=== PATIENT | female | born 2000 | race Caucasian/White ===

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

== ENCOUNTER 2019-09-12 16:15 | Observation (INO) ==
[2019-09-12 16:58] LABS: Basophils % 0.2 %; Eosinophils # 0.2 K/mcL (0.0-0.6); Eosinophils % 1.6 %; Hematocrit 39.3 % (35.3-44.9); Hemoglobin 12.5 g/dL (11.5-15.4); Immature Granulocytes % 0.5 % (0-4); Lymphocytes # 1.5 K/mcL (0.6-4.6); Lymphocytes % 14.7 %; Mean Corpuscular HGB Conc 31.8 g/dL (31.6-35.5); Mean Corpuscular Hemoglobin 27.7 pg (28.0-33.3); Mean Corpuscular Volume 87.1 fL (83.0-100.0); Monocytes # 0.8 K/mcL (0.0-1.3); Monocytes % 7.6 %; Neutrophils # 7.4 K/mcL (1.6-8.9); Platelet Count 250 K/mcL (140-400); Red Blood Count 4.51 M/mcL (3.82-4.97); Red Cell Distribution Width 13.4 % (11.5-14.5); Segmented Neutrophils % 75.4 %; White Blood Count 9.8 K/mcL (4.3-11.1)
[2019-09-12 17:00] LABS: Protein/Creatinine Ratio,Urine 0.17 mg/mg (0.00-0.20)
[2019-09-12 17:19] LABS: Alanine Aminotransferase 9 Units/L (7-52); Aspartate Amino Transferase 14 Units/L (13-39); BUN/Creatinine Ratio 14 (6-26); Blood Urea Nitrogen 6 mg/dL (6-20); Lactate Dehydrogenase 146 Units/L (140-271); Uric Acid 3.6 mg/dL (2.3-7.6); eGFR For African Americans > 60 (> 60); eGFR For Non-African Americans > 60 (> 60)
[2019-09-13] MEDS ORDERED: Prenatal Vit/FA 1 EACH TABLET PO SCH (09:00)
== END 2019-09-12 17:35 | disposition home or self-care (01) ==
LOC: 1NENULAB
PROVIDERS: ADMIT Obstetrics & Gynecology; ATTEND Obstetrics & Gynecology

== ENCOUNTER 2019-09-27 10:59 | Observation (INO) ==
[2019-09-27 11:45] LABS: Bilirubin,Urine Negative (Negative); Blood,Urine Negative (Negative); Clarity,Urine Cloudy (Clear); Color,Urine Dark Yellow (Yellow); Glucose,Urine (UA) Normal (Normal); Ketones,Urine 40 mg/dL (Negative); Leukocyte Esterase,Urine Moderate (Negative); Nitrite,Urine Negative (Negative); PH,Urine 5.5 pH Units (5.0-8.0); Protein,Urine Trace mg/dL (Neg-Trace); Specific Gravity,Urine 1.028 (1.010-1.025); Urobilinogen,Urine Normal (Normal)
[2019-09-27 11:46] LABS: Basophils % 0.3 %; Eosinophils # 0.1 K/mcL (0.0-0.6); Eosinophils % 1.3 %; Hematocrit 39.1 % (35.3-44.9); Hemoglobin 12.7 g/dL (11.5-15.4); Immature Granulocytes % 0.4 % (0-4); Lymphocytes # 1.4 K/mcL (0.6-4.6); Mean Corpuscular HGB Conc 32.5 g/dL (31.6-35.5); Mean Corpuscular Hemoglobin 27.7 pg (28.0-33.3); Mean Corpuscular Volume 85.4 fL (83.0-100.0); Mean Platelet Volume 11.5 fL (9.4-12.4); Monocytes # 0.8 K/mcL (0.0-1.3); Monocytes % 7.8 %; Neutrophils # 7.6 K/mcL (1.6-8.9); Platelet Count 225 K/mcL (140-400); Red Blood Count 4.58 M/mcL (3.82-4.97); Red Cell Distribution Width 13.6 % (11.5-14.5); Segmented Neutrophils % 76.2 %; White Blood Count 9.9 K/mcL (4.3-11.1)
[2019-09-27 11:47] LABS: Bacteria,Urine Many per hpf (None-Few); Squamous Epithelial Cell,Urine Many per lpf (None-Few)
[2019-09-27 11:55] LABS: Protein/Creatinine Ratio,Urine 0.13 mg/mg (0.00-0.20)
[2019-09-27 12:02] LABS: RBC,Urine 0-3 per hpf (0-3)
[2019-09-27 12:13] LABS: Alanine Aminotransferase 8 Units/L (7-52); Aspartate Amino Transferase 14 Units/L (13-39); BUN/Creatinine Ratio 12 (6-26); Blood Urea Nitrogen 6 mg/dL (6-20); Lactate Dehydrogenase 151 Units/L (140-271); Uric Acid 4.8 mg/dL (2.3-7.6); eGFR For African Americans > 60 (> 60); eGFR For Non-African Americans > 60 (> 60)
== END 2019-09-27 13:35 | disposition home or self-care (01) ==
LOC: 1NENULAB
PROVIDERS: ADMIT Obstetrics & Gynecology; ATTEND Obstetrics & Gynecology

== ENCOUNTER 2019-10-01 18:20 | Observation (INO) ==
[2019-10-01 19:52] LABS: Basophils % 0.2 %; Eosinophils # 0.1 K/mcL (0.0-0.6); Eosinophils % 1.1 %; Hemoglobin 11.4 g/dL (11.5-15.4); Immature Granulocytes % 0.3 % (0-4); Lymphocytes # 1.5 K/mcL (0.6-4.6); Mean Corpuscular HGB Conc 32.6 g/dL (31.6-35.5); Mean Corpuscular Hemoglobin 27.8 pg (28.0-33.3); Mean Corpuscular Volume 85.4 fL (83.0-100.0); Mean Platelet Volume 11.6 fL (9.4-12.4); Monocytes # 0.9 K/mcL (0.0-1.3); Monocytes % 9.4 %; Neutrophils # 6.6 K/mcL (1.6-8.9); Platelet Count 213 K/mcL (140-400); Red Cell Distribution Width 13.3 % (11.5-14.5)
[2019-10-01 19:57] LABS: Protein/Creatinine Ratio,Urine 0.15 mg/mg (0.00-0.20)
[2019-10-01 20:07] LABS: Alanine Aminotransferase 7 Units/L (7-52); Aspartate Amino Transferase 14 Units/L (13-39); BUN/Creatinine Ratio 11 (6-26); Blood Urea Nitrogen 6 mg/dL (6-20); Lactate Dehydrogenase 151 Units/L (140-271); Uric Acid 5.1 mg/dL (2.3-7.6); eGFR For African Americans > 60 (> 60); eGFR For Non-African Americans > 60 (> 60)
== END 2019-10-01 22:38 | disposition home or self-care (01) ==
LOC: 1NENULAB
PROVIDERS: ADMIT Obstetrics & Gynecology; ATTEND Obstetrics & Gynecology

== ENCOUNTER 2019-10-07 20:07 | Observation (INO) ==
[2019-10-07 20:38] LABS: Basophils % 0.1 %; Eosinophils # 0.1 K/mcL (0.0-0.6); Hematocrit 34.2 % (35.3-44.9); Hemoglobin 11.3 g/dL (11.5-15.4); Immature Granulocytes % 0.2 % (0-4); Lymphocytes # 1.4 K/mcL (0.6-4.6); Mean Corpuscular Hemoglobin 28.5 pg (28.0-33.3); Mean Corpuscular Volume 86.1 fL (83.0-100.0); Mean Platelet Volume 11.4 fL (9.4-12.4); Monocytes # 0.9 K/mcL (0.0-1.3); Monocytes % 11.1 %; Neutrophils # 5.8 K/mcL (1.6-8.9); Platelet Count 196 K/mcL (140-400); Red Blood Count 3.97 M/mcL (3.82-4.97); Red Cell Distribution Width 13.4 % (11.5-14.5); Segmented Neutrophils % 70.6 %; White Blood Count 8.2 K/mcL (4.3-11.1)
[2019-10-07 20:43] LABS: Bilirubin,Urine Negative (Negative); Blood,Urine Negative (Negative); Clarity,Urine Cloudy (Clear); Color,Urine Yellow (Yellow); Glucose,Urine (UA) Normal (Normal); Ketones,Urine Trace mg/dL (Negative); Leukocyte Esterase,Urine Moderate (Negative); Nitrite,Urine Negative (Negative); PH,Urine 6.5 pH Units (5.0-8.0); Protein,Urine Trace mg/dL (Neg-Trace); Specific Gravity,Urine 1.025 (1.010-1.025); Urobilinogen,Urine Normal (Normal)
[2019-10-07 20:46] LABS: Bacteria,Urine Many per hpf (None-Few); Protein/Creatinine Ratio,Urine 0.15 mg/mg (0.00-0.20); Squamous Epithelial Cell,Urine Many per lpf (None-Few); WBC,Urine 30-50 per hpf (0-3)
[2019-10-07] MEDS ORDERED: EPHEDrine 50 MG/ML VIAL IVP PRN (20:55)
[2019-10-07 20:57] LABS: Alanine Aminotransferase 7 Units/L (7-52); Aspartate Amino Transferase 14 Units/L (13-39); BUN/Creatinine Ratio 11 (6-26); Blood Urea Nitrogen 6 mg/dL (6-20); Lactate Dehydrogenase 149 Units/L (140-271); Uric Acid 5.5 mg/dL (2.3-7.6); eGFR For African Americans > 60 (> 60); eGFR For Non-African Americans > 60 (> 60)
[2019-10-07] MEDS ORDERED: Epidural Premix (fent/bupiv) 110 ML EP SCH (21:00)
[2019-10-07 21:11] LABS: RBC,Urine 0-3 per hpf (0-3)
== END 2019-10-07 21:30 | disposition home or self-care (01) ==
LOC: 1NENULAB
PROVIDERS: ADMIT Student in an Organized Health Care Education/Training Program; ATTEND Student in an Organized Health Care Education/Training Program

== ENCOUNTER → 2019-10-12 01:03 | Observation (INO) ==
[2019-10-12 00:07] VITALS: BP 139/80
== END | disposition home or self-care (01) ==
LOC: 1NENULAB
PROVIDERS: ADMIT Student in an Organized Health Care Education/Training Program; ATTEND Student in an Organized Health Care Education/Training Program

== ENCOUNTER 2019-10-13 14:45 | Inpatient (IN) ==
[2019-10-13] MEDS ORDERED: Naloxone 0.4 MG/ML INJ IVP PRN (14:56)
[2019-10-13] MEDS ORDERED: Metoclopramide 10 MG/2 ML VIAL IVP PRN (14:56)
[2019-10-13] MEDS ORDERED: Famotidine 20 MG/2 ML VIAL IVP PRN (14:56)
[2019-10-13] MEDS ORDERED: Azithromycin 500 MG in 0.9 % Sodium Chloride 250 ML IVPB ONE (14:56)
[2019-10-13] MEDS ORDERED: Ondansetron 4 MG/2 ML VIAL IVP PRN (14:56)
[2019-10-13] MEDS ORDERED: Lidocaine 1% 20 ML MDV INFILT PRN (14:56)
[2019-10-13] MEDS ORDERED: miSOPROStoL 25 MCG TABLET VG PRN (14:56)
[2019-10-13] MEDS ORDERED: *HR* FentaNYL (PF) 100 MCG/2 ML VIAL IVP PRN (14:56)
[2019-10-13] MEDS ORDERED: EPHEDrine 50 MG/ML VIAL IVP PRN (15:20)
[2019-10-13] MEDS ORDERED: Epidural Premix (fent/bupiv) 110 ML EP SCH (15:30)
[2019-10-13] MEDS: Ringers Solution, Lactated 1,000 ML IVC SCH ×2 (16:04→19:44)
[2019-10-13 16:06] LABS: Basophils % 0.3 %; Eosinophils # 0.2 K/mcL (0.0-0.6); Hematocrit 35.9 % (35.3-44.9); Hemoglobin 11.4 g/dL (11.5-15.4); Immature Granulocytes % 0.4 % (0-4); Lymphocytes # 1.3 K/mcL (0.6-4.6); Lymphocytes % 17.1 %; Mean Corpuscular HGB Conc 31.8 g/dL (31.6-35.5); Mean Corpuscular Hemoglobin 27.5 pg (28.0-33.3); Mean Corpuscular Volume 86.7 fL (83.0-100.0); Mean Platelet Volume 11.8 fL (9.4-12.4); Monocytes # 0.7 K/mcL (0.0-1.3); Monocytes % 9.8 %; Neutrophils # 5.3 K/mcL (1.6-8.9); Platelet Count 206 K/mcL (140-400); Red Blood Count 4.14 M/mcL (3.82-4.97); Red Cell Distribution Width 13.9 % (11.5-14.5); Segmented Neutrophils % 70.4 %; White Blood Count 7.5 K/mcL (4.3-11.1)
[2019-10-13 16:24] LABS: Alanine Aminotransferase 10 Units/L (7-52); Aspartate Amino Transferase 19 Units/L (13-39); BUN/Creatinine Ratio 13 (6-26); Blood Urea Nitrogen 6 mg/dL (6-20); Lactate Dehydrogenase 163 Units/L (140-271); Uric Acid 4.9 mg/dL (2.3-7.6); eGFR For African Americans > 60 (> 60); eGFR For Non-African Americans > 60 (> 60)
[2019-10-13 16:46] LABS: Amphetamine Screen,Urine Negative ng/mL (Cutoff=1000); Barbiturate Screen,Urine Negative ng/mL (Cutoff=200); Benzodiazepines Screen,Urine Negative ng/mL (Cutoff=200); Cannabinoid Screen,Urine Negative ng/mL (Cutoff = 50); Cocaine Screen,Urine Negative ng/mL (Cutoff= 300); Opiate Screen,Urine Negative ng/mL (Cutoff=300); Phencyclidine Screen,Urine Negative ng/mL (Cutoff=25); Protein/Creatinine Ratio,Urine 0.16 mg/mg (0.00-0.20)
[2019-10-13] MEDS ORDERED: *HR* Ropivacaine/PF 0.5% 20 ML VIAL ONE (20:32)
[2019-10-13] MEDS ORDERED: *HR* FentaNYL (PF) 100 MCG/2 ML VIAL ONE (20:48)
[2019-10-13] MEDS ORDERED: Oxytocin 20 units/ LR 1000 mL 20 UNIT/1,000 ML BAG IVC ONE (20:59)
[2019-10-13] MEDS ORDERED: Oxytocin 20 units/ LR 1000 mL 20 UNIT/1,000 ML BAG IVC SCH (22:13)
[2019-10-13] MEDS ORDERED: Measles/Mumps/Rubella Vacc 0.5 ML VIAL SQ PRN (22:13)
[2019-10-13] MEDS ORDERED: Rho Immune Globulin 1,500 UNIT SYRINGE IM PRN (22:13)
[2019-10-13] MEDS ORDERED: Acetaminophen 325 MG TABLET PO PRN (22:13)
[2019-10-13] MEDS: Ibuprofen 600 MG TABLET PO PRN (22:34)
[2019-10-14 03:53] LABS: Basophils % 0.2 %; Eosinophils # 0.1 K/mcL (0.0-0.6); Eosinophils % 0.6 %; Hematocrit 30.6 % (35.3-44.9); Hemoglobin 10.3 g/dL (11.5-15.4); Immature Granulocytes % 0.4 % (0-4); Lymphocytes # 1.4 K/mcL (0.6-4.6); Lymphocytes % 11.9 %; Mean Corpuscular HGB Conc 33.7 g/dL (31.6-35.5); Mean Corpuscular Hemoglobin 28.5 pg (28.0-33.3); Mean Corpuscular Volume 84.5 fL (83.0-100.0); Monocytes # 1.1 K/mcL (0.0-1.3); Monocytes % 8.9 %; Platelet Count 171 K/mcL (140-400); Red Blood Count 3.62 M/mcL (3.82-4.97); Red Cell Distribution Width 13.8 % (11.5-14.5)
[2019-10-14 03:54] LABS: Neutrophils # 9.4 K/mcL (1.6-8.9)
[2019-10-14] MEDS: Ibuprofen 600 MG TABLET PO PRN ×2 (07:45→20:37)
[2019-10-14] MEDS: Prenatal Vit/FA 1 EACH TABLET PO SCH (07:45)
[2019-10-14] MEDS: Nitrofurantoin (BID) 100 MG CAPSULE PO SCH ×2 (07:45→20:37)
[2019-10-14] MEDS ORDERED: NON-FORMULARY MEDICATION 1 EACH EACH (Pnv No.95/Ferrous Fum/Folic Ac [Prenatal Caplet] 1 T PO SCH (09:00)
[2019-10-15] MEDS: Nitrofurantoin (BID) 100 MG CAPSULE PO SCH (08:13)
[2019-10-15] MEDS: Prenatal Vit/FA 1 EACH TABLET PO SCH (08:13)
[2019-10-15 08:24] VITALS: BP 143/98
== END 2019-10-15 09:50 | disposition home or self-care (01) | DRG 560 ==
LOC: 1NENULAB 14:45 → 1NENUOBS 23:30
PROVIDERS: ADMIT Obstetrics & Gynecology; ATTEND Obstetrics & Gynecology

== ENCOUNTER → 2020-10-11 15:50 | Observation (INO) ==
[2020-10-11 14:42] LABS: Basophils % 0.2 %; Eosinophils # 0.2 K/mcL (0.0-0.6); Hematocrit 37.4 % (35.3-44.9); Hemoglobin 12.4 g/dL (11.5-15.4); Immature Granulocytes % 0.5 % (0-4); Lymphocytes # 1.3 K/mcL (0.6-4.6); Lymphocytes % 12.4 %; Mean Corpuscular HGB Conc 33.2 g/dL (31.6-35.5); Mean Corpuscular Hemoglobin 29.1 pg (28.0-33.3); Mean Corpuscular Volume 87.8 fL (83.0-100.0); Mean Platelet Volume 10.8 fL (9.4-12.4); Monocytes # 0.8 K/mcL (0.0-1.3); Monocytes % 7.3 %; Neutrophils # 8.2 K/mcL (1.6-8.9); Platelet Count 278 K/mcL (140-400); Red Blood Count 4.26 M/mcL (3.82-4.97); Red Cell Distribution Width 13.1 % (11.5-14.5); Segmented Neutrophils % 77.6 %; White Blood Count 10.6 K/mcL (4.3-11.1)
[2020-10-11 14:58] LABS: Alanine Aminotransferase 9 Units/L (7-52); Aspartate Amino Transferase 14 Units/L (13-39); BUN/Creatinine Ratio 16 (6-26); Blood Urea Nitrogen 8 mg/dL (6-20); Lactate Dehydrogenase 133 Units/L (140-271); Uric Acid 4.2 mg/dL (2.3-7.6); eGFR For African Americans > 60 (> 60); eGFR For Non-African Americans > 60 (> 60)
[2020-10-11 15:34] LABS: Protein/Creatinine Ratio,Urine 0.15 mg/mg (0.00-0.20)
== END | disposition home or self-care (01) ==
LOC: 1NENULAB
PROVIDERS: ADMIT Advanced Practice Midwife; ATTEND Advanced Practice Midwife

== ENCOUNTER 2020-11-09 13:02 | Observation (INO) ==
[2020-11-09] MEDS ORDERED: Ringers Solution, Lactated 1,000 ML IVC ONE (13:49)
[2020-11-09 14:11] LABS: Basophils % 0.2 %; Eosinophils # 0.2 K/mcL (0.0-0.6); Hematocrit 36.7 % (35.3-44.9); Immature Granulocytes % 0.3 % (0-4); Lymphocytes # 1.2 K/mcL (0.6-4.6); Lymphocytes % 12.1 %; Mean Corpuscular HGB Conc 32.7 g/dL (31.6-35.5); Mean Corpuscular Hemoglobin 28.4 pg (28.0-33.3); Mean Corpuscular Volume 86.8 fL (83.0-100.0); Monocytes % 10.3 %; Neutrophils # 7.2 K/mcL (1.6-8.9); Platelet Count 227 K/mcL (140-400); Red Blood Count 4.23 M/mcL (3.82-4.97); Red Cell Distribution Width 13.2 % (11.5-14.5); Segmented Neutrophils % 75.1 %; White Blood Count 9.6 K/mcL (4.3-11.1)
[2020-11-09 14:47] LABS: Protein/Creatinine Ratio,Urine 0.13 mg/mg (0.00-0.20)
[2020-11-09 14:51] LABS: Alanine Aminotransferase 10 Units/L (7-52); Aspartate Amino Transferase 15 Units/L (13-39); BUN/Creatinine Ratio 14 (6-26); Blood Urea Nitrogen 7 mg/dL (6-20); Lactate Dehydrogenase 136 Units/L (140-271); Uric Acid 4.4 mg/dL (2.3-7.6); eGFR For African Americans > 60 (> 60); eGFR For Non-African Americans > 60 (> 60)
[2020-11-09 15:03] LABS: Color,Urine Yellow (Yellow)
[2020-11-09 15:04] LABS: Bilirubin,Urine Negative (Negative); Clarity,Urine Cloudy (Clear); Glucose,Urine (UA) Normal (Normal)
[2020-11-09 15:05] LABS: Blood,Urine Moderate (Negative); Ketones,Urine 40 mg/dL (Negative); Leukocyte Esterase,Urine Large (Negative); Nitrite,Urine Negative (Negative); PH,Urine 6.5 pH Units (5.0-8.0); Protein,Urine 100 mg/dL (Neg-Trace); Specific Gravity,Urine > 1.030 (1.010-1.025)
[2020-11-09 15:06] LABS: Bacteria,Urine Few per hpf (None-Few); Mucus,Urine Many per lpf (None-Few); Squamous Epithelial Cell,Urine Moderate per hpf (None-Few); WBC,Urine 30-50 per hpf (0-3)
== END 2020-11-09 15:12 | disposition home or self-care (01) ==
LOC: 1NENULAB
PROVIDERS: ADMIT Student in an Organized Health Care Education/Training Program; ATTEND Student in an Organized Health Care Education/Training Program

== ENCOUNTER 2020-12-01 07:52 | Inpatient (IN) ==
[2020-12-01] MEDS ORDERED: miSOPROStoL 25 MCG TABLET PO PRN (08:14)
[2020-12-01] MEDS ORDERED: Famotidine 20 MG/2 ML VIAL IVP PRN (08:14)
[2020-12-01] MEDS ORDERED: Azithromycin 500 MG in 0.9 % Sodium Chloride 250 ML IVPB PRN (08:14)
[2020-12-01] MEDS ORDERED: Metoclopramide 10 MG/2 ML VIAL IVP PRN (08:14)
[2020-12-01] MEDS ORDERED: Lidocaine 1% 20 ML MDV INFILT PRN (08:14)
[2020-12-01] MEDS ORDERED: Naloxone 0.4 MG/ML INJ IVP PRN (08:14)
[2020-12-01] MEDS ORDERED: *HR* Nalbuphine 10 MG/ML AMPUL IV PRN (08:14)
[2020-12-01] MEDS ORDERED: Ondansetron 4 MG/2 ML VIAL IVP PRN (08:14)
[2020-12-01] MEDS ORDERED: Oxytocin 20 units/ LR 1000 mL 20 UNIT/1,000 ML BAG IVC SCH ×2 (08:15→21:16)
[2020-12-01 09:12] LABS: Basophils % 0.1 %; Eosinophils # 0.3 K/mcL (0.0-0.6); Eosinophils % 3.8 %; Hematocrit 38.7 % (35.3-44.9); Hemoglobin 12.2 g/dL (11.5-15.4); Immature Granulocytes % 0.4 % (0-4); Lymphocytes # 1.3 K/mcL (0.6-4.6); Mean Corpuscular HGB Conc 31.5 g/dL (31.6-35.5); Mean Corpuscular Hemoglobin 27.7 pg (28.0-33.3); Mean Corpuscular Volume 87.8 fL (83.0-100.0); Mean Platelet Volume 11.2 fL (9.4-12.4); Monocytes # 0.7 K/mcL (0.0-1.3); Monocytes % 9.7 %; Neutrophils # 4.9 K/mcL (1.6-8.9); Platelet Count 212 K/mcL (140-400); Red Blood Count 4.41 M/mcL (3.82-4.97); Red Cell Distribution Width 13.8 % (11.5-14.5); White Blood Count 7.1 K/mcL (4.3-11.1)
[2020-12-01 09:19] LABS: Amphetamine Screen,Urine Negative ng/mL (Cutoff=1000); Barbiturate Screen,Urine Negative ng/mL (Cutoff=200); Benzodiazepines Screen,Urine Negative ng/mL (Cutoff=200); Cannabinoid Screen,Urine Negative ng/mL (Cutoff = 50); Cocaine Screen,Urine Negative ng/mL (Cutoff= 300); Opiate Screen,Urine Negative ng/mL (Cutoff=300); Phencyclidine Screen,Urine Negative ng/mL (Cutoff=25)
[2020-12-01] MEDS: Ringers Solution, Lactated 1,000 ML IVC SCH ×3 (10:20→15:25)
[2020-12-01] MEDS ORDERED: Ropivacaine/PF 0.2% 20 ML VIAL EP ONE (13:58)
[2020-12-01] MEDS ORDERED: *HR* FentaNYL (PF) 100 MCG/2 ML VIAL EP ONE (13:58)
[2020-12-01] MEDS ORDERED: EPHEDrine 50 MG/ML VIAL IVP PRN (13:58)
[2020-12-01] MEDS ORDERED: Epidural Premix (fent/bupiv) 110 ML EP SCH (14:00)
[2020-12-01] MEDS ORDERED: *HR* FentaNYL (PF) 100 MCG/2 ML VIAL ONE (14:58)
[2020-12-01] MEDS ORDERED: Ropivacaine/PF 0.2% 20 ML VIAL ONE (14:58)
[2020-12-01] MEDS ORDERED: Acetaminophen 325 MG TABLET PO PRN (21:16)
[2020-12-01] MEDS ORDERED: Rho Immune Globulin 1,500 UNIT SYRINGE IM PRN (21:16)
[2020-12-01] MEDS ORDERED: Ibuprofen 600 MG TABLET PO PRN (21:16)
[2020-12-01] MEDS ORDERED: Measles/Mumps/Rubella Vacc 0.5 ML VIAL SQ PRN (21:16)
[2020-12-02 07:40] VITALS: BP 128/77
[2020-12-02] MEDS ORDERED: NON-FORMULARY MEDICATION 1 EACH EACH (Pnv No.95/Ferrous Fum/Folic Ac [Prenatal Caplet] 1 E PO SCH (09:00)
[2020-12-02] MEDS ORDERED: Prenatal Vit/FA 1 EACH TABLET PO SCH (09:00)
== END 2020-12-02 16:12 | disposition home or self-care (01) | DRG 560 ==
LOC: 1NENULAB 07:52 → 1NENUOBS 22:31
PROVIDERS: ADMIT Student in an Organized Health Care Education/Training Program; ATTEND Student in an Organized Health Care Education/Training Program